=== PATIENT | female | born 1995 | race Asian ===

== ENCOUNTER 2016-10-20 12:53 | Emergency (ER) | payer OTHER ==
[2016-10-20] MEDS ORDERED: Acetaminophen TAB* 325 MG PO ONE (13:22)
[2016-10-20] MEDS ORDERED: Clindamycin 600 MG IVPREMIX(* 600 MG in PREMIX* 0 ML IV ONE (14:12)
[2016-10-20] MEDS ORDERED: methylPREDNISolone 125 MG* 2 ML VIAL IV ONE (14:12)
[2016-10-20] MEDS ORDERED: NS 0.9% 1000 ML* 2,000 ML IV ONE (14:13)
[2016-10-20] MEDS ORDERED: Clindamycin 600 MG IVPREMIX(* 600 MG/50 ML SDV ONE (14:46)
[2016-10-20 14:53] LABS: Hematocrit 37 % (35-47); Hemoglobin 11.9 g/dl (12.0-16.0); Mean Corpuscular HGB Conc 32 g/dl (31-36); Mean Corpuscular Hemoglobin 28 pg (27-31); Mean Corpuscular Volume 86 fL (80-97); Mean Platelet Volume 7 um3 (7.4-10.4); Red Blood Count 4.31 10^6/ul (4.0-5.4); Red Cell Distribution Width 14 % (10.5-15); White Blood Count 21.4 10^3/ul (3.5-10.8)
--- NOTE | 2016-10-20 14:57 | ED ---
Throat Pain/Nasal Congestion - HPI Summary HPI Summary: Patient is a 20yo female transferred to ED from [facility] with possible peritonsillar abscess. Labs taken at [place] shows WBC 21,000 with neutrophilic shift. Fever at 101.3 on arrival to ED. Monospot negative. Muffled voice. Denies trismus. Patient was diagnosed with positive strep throat 2 weeks ago and placed on Penicillin. She completed the 10 day course 3 days ago and now presents with similar pain now with enlarging tonsils. She states pain is bilateral but worse on the right. She notes dysphagia, but denies airway compromise. She is eating and drinking OK otherwise. Denies SOB, chest pain or LIPSCOMB. Denies stiff neck. Endorses anterior neck pain bilaterally worse with palpation. She endorses non-productive cough x 2 weeks. She is otherwise healthy and takes no medications. - History of Current Complaint Chief Complaint: EDThroatPain Time Seen by Provider: 10/20/16 12:57 Hx Obtained From: Patient Onset/Duration: Gradual Onset Severity: Severe Associated Signs And Symptoms: Positive: Dysphagia, FB Sensation, Hoarseness Cough: Nonproductive Related History: Other (Noted In Comments) - recent strep positive with monospot negative - Epiglottits Risk Factors Epiglottis Risk Factors: Muffled Voice - Allergies/Home Medications Allergies/Adverse Reactions: Allergies Allergy/AdvReac Type Severity Reaction Status Date / Time No Known Allergies Allergy Verified 10/20/16 14:51 PMH/Surg Hx/FS Hx/Imm Hx Previously Healthy: Yes Infectious Disease History: No Infectious Disease History: Denies: Traveled Outside the [place] in Last 30 Days - Social History Occupation: Student Lives: Alone Alcohol Use: None Hx Substance Use: No Substance Use Type: Reports: None Hx Tobacco Use: No Smoking Status (MU): Never Smoked Tobacco Do You Chew or Dip Tobacco: No Have You Chewed or Dipped Tobacco in the LAST YEAR: No Have You Smoked in the Last Year: No Review of Systems Positive: Fever, Fatigue Positive: Sore Throat Cardiovascular: Negative Respiratory: Negative Positive: see HPI Musculoskeletal: Negative Skin: Negative Neurological: Negative Psychological: Normal All Other Systems Reviewed And Are Negative: Yes Physical Exam Triage Information Reviewed: Yes Vital Signs On Initial Exam: Initial Vitals Temp Pulse Resp BP Pulse Ox 101.3 F 108 18 114/70 97 10/20/16 12:59 10/20/16 12:59 10/20/16 12:59 10/20/16 12:59 10/20/16 12:59 Vital Signs Reviewed: Yes Appearance: Positive: Ill-Appearing, Pain Distress Skin: Positive: Skin Color Reflects Adequate Perfusion, Diaphoretic Eyes: Positive: EOMI, VIANEY ENT: Positive: Pharyngeal erythema, Tonsillar swelling, Tonsillar exudate, Muffled/hoarse voice, Other - +3 tonsillar hypertrophy bilaterally with uvula shift to the right. Exudates. soft palate without swlling. Cervical adenopathy and tenderness on palpation. Neck: Positive: Tenderness @ - cervical adenopathy Respiratory/Lung Sounds: Positive: Breath Sounds Present Cardiovascular: Positive: Pulses are Symmetrical in both Upper and Lower Extremities Musculoskeletal: Positive: Normal, Strength/ROM Intact Neurological: Positive: Sensory/Motor Intact, Alert, Oriented to Person Place, Time, Speech Normal Psychiatric: Positive: Normal Diagnostics - Vital Signs Vital Signs Temp Pulse Resp BP Pulse Ox 10/20/16 14:30 97 89/38 96 10/20/16 14:00 109 100/52 97 10/20/16 13:30 100 103/69 97 10/20/16 13:25 104 98 10/20/16 13:22 118/62 10/20/16 12:59 101.3 F 108 18 114/70 97 - Laboratory Lab Results: Lab Results 10/20/16 Range/Units 13:30 Group A Strep Rapid Negative (Negative) Result Diagrams: 10/20/16 14:45 10/20/16 14:45 Lab Statement: Any lab studies that have been ordered have been reviewed, and results considered in the medical decision making process. EENT Course/Dx - Course Course Of Treatment: Patient transferred here from [place]. Patient without trismus, airway compromise or posterior neck pain. Strep rapid negative. Provider called [facility] at 2pm with Melissa report and information. Pancho recommended Clindamycin IV and Solumedrol IV. Will DC home with oral antiobiotics and 5 day course of steroids and follow up with Pancho in office. return precautions given. Note given for school. Assessment/Plan: Follow up with Dr. Deleon - Differential Diagnoses Differential Diagnoses: Peritonsillar Ulcer, Pharyngitis, Tonsilitis, Other - peritonsillar abscess - Diagnoses Provider Diagnoses: Peritonsillar abscess Discharge - Discharge Plan Condition: Stable Disposition: HOME Prescriptions: Clindamycin Cap(NF) [Cleocin 300 mg Cap(NF)] 300 mg PO Q6H #56 cap predniSONE TAB* [Deltasone TAB*] 50 mg PO DAILY #5 tab MDD 1 Patient Education Materials: Peritonsillar Abscess (ED) Forms: *School Release [facility] - Maksim Deloen MD [Medical Doctor] - Additional Instructions: Follow up with Dr. Deleon this week. Call office to make appt. You will need antibiotic medicine to treat this. Please take the antibiotic as directed. You should feel better within 2 to 3 days after you start antibiotics. You may return to work or school 24 hours after you start antibiotics. If you have any questions about your medications, please do no hesitate to call or talk with your pharmacist. How can I manage my symptoms? Use lozenges, ice, soft foods, or popsicles to soothe your throat. Drink juice, milk shakes, or soup if your throat is too sore to eat solid food. Drinking liquids can also help prevent dehydration. Gargle with salt water. Mix teaspoon salt in a 1 cup of warm water and gargle. This may help reduce swelling in your throat. Do not smoke. Nicotine and other chemicals in cigarettes and cigars can cause lung damage and make your symptoms worse. Ask your healthcare provider for information if you currently smoke and need help to quit. E-cigarettes or smokeless tobacco still contain nicotine. Talk to your healthcare provider before you use these products. If you develop any airway compromise, difficulty breathing, unable to eat or drink or other worsening symptoms, please come back to ED immediately for further evaluation.
[2016-10-20 15:11] LABS: Albumin 3.9 g/dL (3.2-5.2); BUN/Creatinine Ratio 11.1 (8-20); C Reactive Protein 142.82 mg/L (< 5.00); Calcium 9.2 mg/dL (8.6-10.3); EGFR African American 156.6 (>60); EGFR Non-African American 121.7 (>60); Globulin 2.9 g/dL (2-4); Potassium 3.7 mmol/L (3.5-5.0); Total Bilirubin 0.8 mg/dL (0.2-1.0); Total Protein 6.8 g/dL (6.4-8.9)
[2016-10-20] MEDS ORDERED: NS 0.9% 1000 ML* 1,000 ML IV ONE (16:17)
[2016-10-20 21:43] VITALS: BP 105/60
== END 2016-10-20 19:08 | disposition home or self-care (01) ==
LOC: ED 12:53
DX: J35.8 Other chronic diseases of tonsils and adenoids (principal); J36 Peritonsillar abscess; J03.90 Acute tonsillitis, unspecified; J02.9 Acute pharyngitis, unspecified; R50.9 Fever, unspecified
CPT/HCPCS: 36415; 80053; 85025; 86140; 87651; 96374; 99283; A9270-GY; J2930